=== PATIENT | female | born 1995 | race Caucasian/White ===

== ENCOUNTER → 2017-05-22 14:00 | Outpatient (CLI) | payer SELFPAY ==
[2017-05-23 12:49] LABS: Chlamydia Trachomatis by PCR Negative (Negative); Neisserai gonorrhoeae by PCR Negative (Negative); Probe Check PASS; Sample Adequacy Control PASS; Specimen Processing Control PASS
[2017-05-25 10:22] LABS: HPV Reflexed? NOT INDICATED
== END ==
PROVIDERS: Visit Provider Obstetrics & Gynecology
DX: Z12.4 Encounter for screening for malignant neoplasm of cervix (principal); Z11.3 Encounter for screening for infections with a predominantly sexual mode of transmission
CPT/HCPCS: 87491; 87591; 88175; G0145

== ENCOUNTER → 2017-05-23 13:49 | Outpatient (CLI) | payer SELFPAY ==
[2017-05-23 16:16] LABS: Color, Urine Yellow (Yellow); Glucose, Dipstick Normal (Normal); Ketone-Dipstick Negative (Negative); Leukocyte Esterase-Dipstick 25 /ul (Negative); Nitrite-Dipstick Negative (Negative); Occult Blood-Urine Negative /ul (Negative); Protein-Dipstick Negative (Negative); Specific Gravity, Urine 1.015 (1.002-1.030); Urine Bilirubin Dipstick Negative (Negative); Urine Clarity Sl. Cloudy (Clear); Urine Urobilinogen Normal (Normal)
[2017-05-23 16:24] LABS: Absolute Lymphocyte Count 1.78 X10^3/ul (0.83-4.51); Absolute Neutrophil Count 4.6 X10^3/uL (2.0-7.7); Basophil# 0.01 X10^3/uL; Basophil% 0.1 % (0-1); Eosinophil# 0.02 X10^3/uL; Eosinophils% 0.3 % (0-5); Hematocrit 37.7 % (37-47); Hemoglobin 12.7 g/dl (12.0-15.0); Lymphocyte # 1.78 X10^3/ul (4.0); Lymphocyte % 26.3 % (19-41); Mean Corp Hgb Conc 33.7 g/gl (32-36); Mean Corpuscular Hgb 29.2 pg (27.0-32.0); Mean Corpuscular Volume 86.7 fL (81-99); Mean Platelet Vol. 9.7 fl (6.2-12.0); Monocyte# 0.32 X10^3/uL; Monocyte% 4.7 % (0-10); Neutrophil # 4.62 X10^3/uL (2.7-7.7); Neutrophil % 68.5 % (47-70); POSITIVE COUNT NO; POSITIVE DIFFERENTIAL NO; POSITIVE MORPHOLOGY NO; Platelet Count 208 K/mm3 (150-450); RBC Distribution Width CV 13.2 % (11.6-14.6); RBC Distribution Width SD 42.1 fl (35.1-43.9); Red Blood Count 4.35 M/mm3 (4.2-5.4); White Blood Count 6.8 K/mm3 (4.4-11.0)
[2017-05-23 16:43] LABS: Thyroid Stim Hormone (TSH) 1.53 uIU/mL (0.358-3.74)
[2017-05-23 17:24] LABS: HIV - WCH Non-Reactive (Nonreactive)
[2017-05-25 10:21] LABS: HEPATITIS B SURFACE AG Negative (Negative); Hep C Antibodies <0.1 s/co ratio (0.0-0.9)
[2017-05-27 01:50] LABS: Prenatal RPR NONREACTIVE (NONREACTIVE)
== END ==
PROVIDERS: Visit Provider Obstetrics & Gynecology
DX: Z34.82 Encounter for supervision of other normal pregnancy, second trimester (principal)
CPT/HCPCS: 36415; 81002; 84443; 85025; 86703; 86762; 86803; 87340

== ENCOUNTER → 2017-09-04 11:00 | Outpatient (CLI) | payer SELFPAY ==
[2017-09-05 11:27] LABS: Group B Strep DNA By PCR Negative (Negative); Internal Control PASS; Probe Check PASS; Specimen Processing Control PASS
== END ==
PROVIDERS: Visit Provider Obstetrics & Gynecology
DX: Z36.85 Encounter for antenatal screening for Streptococcus B (principal)
CPT/HCPCS: 87081; 87653

== ENCOUNTER 2017-10-04 07:00 | Inpatient (IN) | payer SELFPAY ==
[2017-10-04 07:05] VITALS: BMI 27.7
[2017-10-04] MEDS: Lactated Ringers 1,000 ML 50 ML IV (07:40)
[2017-10-04] MEDS: Oxytocin 30 units/NS 500 ml 30 UNITS/500 ML IV.SOLN IV (07:54)
[2017-10-04 07:55] LABS: Hematocrit 34.9 % (37-47); Mean Corp Hgb Conc 34.4 g/gl (32-36); Mean Corpuscular Volume 87.3 fL (81-99); Platelet Count 144 K/mm3 (150-450); RBC Distribution Width CV 12.7 % (11.6-14.6); RBC Distribution Width SD 40.7 fl (35.1-43.9); White Blood Count 5.8 K/mm3 (4.4-11.0)
[2017-10-04 07:57] LABS: Scan Indicated on CBC? Y/N NO
[2017-10-04] MEDS: CLARIFY ORDER NOTE (08:13)
[2017-10-04] MEDS: Nalbuphine 10 MG/ML Ampul IV (11:11)
[2017-10-04] MEDS: Oxytocin 30 units/NS 500 ml 30 UNITS/500 ML IV.SOLN 334 UNITS IV (14:10)
--- NOTE | 2017-10-04 14:20 | PCM.OB.VAG ---
Vaginal Delivery Maternal Presentation: Elective Induction Method of Induction: Pitocin, Amniotomy Amniotic Membrane Rupture Type: Artificial Amniotic Fluid Description: Clear Final ANNETTE: 09/30/17 Final ANNTETE Source: US <20 weeks Gestational age: 40 Weeks and 4 Days Date of Procedure: 10/04/17 Pre-Operative Diagnosis: IUP Post-Operative Diagnosis: IUP Surgery/ Procedure Performed: Spontaneous Vaginal Delivery Type of Anesthesia: None Description of Procedure: Spontaneous vaginal delivery of a viable female with Apgars of 9/9 with a normal three-vessel placenta. Occiput anterior presentation. No episiotomy. First-degree midline laceration repaired with 3-0 Vicryl suture. Sponge counts okay. Delivery physician: Rudy Rodriguez MD. Presentation: Vertex Placental Delivery Description: Spontaneous Placenta Disposition: [facility] Cord Vessel Description: 3 Vessels Cord Entanglement: None Estimated Blood Loss: 250 cc Infant A gender: Female (1 minute): 9 (5 minute): 9 Episiotomy Description: None Laceration: Midline, Perineal Extension/lac, 1st degree Medications given after delivery: IV Pitocin Complications: None
--- NOTE | 2017-10-04 14:23 | OP.PCM_ITS ---
Vaginal Delivery Maternal Presentation: Elective Induction Method of Induction: Pitocin, Amniotomy Amniotic Membrane Rupture Type: Artificial Amniotic Fluid Description: Clear Final ANNETTE: 09/30/17 Final ANNETTE Source: US <20 weeks Gestational age: 40 Weeks and 4 Days Date of Procedure: 10/04/17 Pre-Operative Diagnosis: IUP Post-Operative Diagnosis: IUP Surgery/ Procedure Performed: Spontaneous Vaginal Delivery Type of Anesthesia: None Description of Procedure: Spontaneous vaginal delivery of a viable female with Apgars of 9/9 with a normal three-vessel placenta. Occiput anterior presentation. No episiotomy. First-degree midline laceration repaired with 3-0 Vicryl suture. Sponge counts okay. Delivery physician: Rudy Rodriguez MD. Presentation: Vertex Placental Delivery Description: Spontaneous Placenta Disposition: [facility] Cord Vessel Description: 3 Vessels Cord Entanglement: None Estimated Blood Loss: 250 cc Infant A gender: Female (1 minute): 9 (5 minute): 9 Episiotomy Description: None Laceration: Midline, Perineal Extension/lac, 1st degree Medications given after delivery: IV Pitocin Complications: None
--- NOTE | 2017-10-04 14:23 | PCM.DCVAG ---
Discharge Diet: No Restrictions Discharge Activity: May Shower, May Take a Tub Bath May resume sexual activity in: 4-6 weeks Additional Activity Instructions:: Nothing in the vagina for 4-6 weeks. You may return to work/school in 6 weeks. Call your doctor if you observe: Fever of 101 or Higher, Inability to urinate, Inability to have a bowel movement, Using more than one pad per hour Additional Instructions: If you experience any of the following, contact your healthcare provider. Bleeding that soaks a pad every hour for 2 hours Unrelieved incision or abdominal pain Swelling, redness, discharge or bleeding from your incision or episiotomy site Your incision begins to separate Problems urinating (including inability to urinate or burning while urinating). Visual changes Severe headache Flu-like symptoms Pain or redness in one of both of your breasts Pain, warmth, tenderness or swelling in your legs, especially the calf area Frequent nausea and vomiting Symptoms of depression or anxiety If you experience any of the following, call 911 or go to the nearest Emergency Room. Chest pain Problems breathing Seizure activity Partial or complete paralysis of a body part, slurred speech, weakness or drooping of the face, or a sudden inability to walk or hold your balance Allergies/Adverse Reactions: Allergies No Known Allergies Allergy (Unverified 10/04/17 08:11) Medications to take at Discharge Vits [Prenatabs FA] 1 tablet PO DAILY 10/04/17 Please Follow Up With: Rudy Rodriguez MD - [phone] When: Call to make an appointment with your doctor in 6 weeks. Primary Care Physician: Rudy Marquez [Primary Care Provider] -
--- NOTE | 2017-10-04 14:24 | DCINST_ITS ---
Discharge Diet: No Restrictions Discharge Activity: May Shower, May Take a Tub Bath May resume sexual activity in: 4-6 weeks Additional Activity Instructions:: Nothing in the vagina for 4-6 weeks. You may return to work/school in 6 weeks. Call your doctor if you observe: Fever of 101 or Higher, Inability to urinate, Inability to have a bowel movement, Using more than one pad per hour Additional Instructions: If you experience any of the following, contact your healthcare provider. * Bleeding that soaks a pad every hour for 2 hours * Unrelieved incision or abdominal pain * Swelling, redness, discharge or bleeding from your incision or episiotomy site * Your incision begins to separate * Problems urinating (including inability to urinate or burning while urinating) . * Visual changes * Severe headache * Flu-like symptoms * Pain or redness in one of both of your breasts * Pain, warmth, tenderness or swelling in your legs, especially the calf area * Frequent nausea and vomiting * Symptoms of depression or anxiety If you experience any of the following, call 911 or go to the nearest Emergency Room. * Chest pain * Problems breathing * Seizure activity * Partial or complete paralysis of a body part, slurred speech, weakness or drooping of the face, or a sudden inability to walk or hold your balance Allergies/Adverse Reactions: Allergies No Known Allergies Allergy (Unverified 10/04/17 08:11) Medications to take at Discharge Vits [Prenatabs FA] 1 tablet PO DAILY 10/04/17 Please Follow Up With: Rudy Rodriguez MD - [phone] When: Call to make an appointment with your doctor in 6 weeks. Primary Care Physician: Rudy Marquez [Primary Care Provider] -
[2017-10-04] MEDS: Oxytocin 30 units/NS 500 ml 30 UNITS/500 ML IV.SOLN 167 UNITS IV (14:40)
[2017-10-04] MEDS: Methylergonovine 0.2 MG/ML Ampul IM (15:01)
[2017-10-04] MEDS: 0.9% Saline Lock 10 ML Syringe IV (16:26)
[2017-10-04 21:00] VITALS: BP 134/75; PULSE 68; RESP 16; TEMP 36.6; O2SAT 97
[2017-10-04] MEDS: Ibuprofen 600 MG Tablet PO (21:19)
[2017-10-05 00:15] VITALS: BP 107/68; PULSE 62; RESP 16; TEMP 36.3
[2017-10-05 04:00] VITALS: BP 112/65; PULSE 75; RESP 16; TEMP 36.4
[2017-10-05 08:02] VITALS: BP 107/69; PULSE 60; RESP 16; TEMP 36.2; O2SAT 98
[2017-10-05] MEDS: Ibuprofen 600 MG Tablet PO (08:13)
--- NOTE | 2017-10-05 08:25 | PCM.PN.OB ---
Subjective: No complaints. Denies heavy lochia. Infant nurses well. Has minimal pain. Objective: avss - Physical Exam General: Alert, Oriented x3, Cooperative HEENT: Atraumatic, Normocephalic Lungs: Clear to auscultation, Normal air movement Cardiovascular: Regular rate, Regular Rhythm, Normal S1, Normal S2 Abdomen: Soft, Non Tender, Non-Distended, - - Fundus firm and nontender, lochia moderate Extremities: No edema, No Calf Tenderness Neurological: Neuro grossly intact Psych/Mental Status: Normal Affect, Appropriate, Alert and oriented to time, place, person, mood and affect Vital Signs Temp Pulse Resp BP Pulse Ox 97.6 F L 67 16 113/72 97 10/05/17 11:23 10/05/17 11:23 10/05/17 11:23 10/05/17 11:23 10/05/17 11:23 Oxygen Delivery Method Room Air Weight: 75.614 kg Body Mass Index (BMI) 27.7 Intake and Output for Last 24 Hours 10/03/17 10/04/17 10/05/17 23:59 23:59 23:59 Intake Total 1350 / 1350 Output Total 325 / 325 Balance 1025 / 1025 Medical Necessity - Tobacco Use Smoking Status: Former smoker Assessment/Plan 22yo P2002 PPD#1 s/p doing well. -Rh positive -Discussed LARC form - following review of various contraceptive options including LARCs. Patient declines. Form signed - -Will plan for d/c later today pending discharge
[2017-10-05 11:23] VITALS: BP 113/72; PULSE 67; RESP 16; TEMP 36.4; O2SAT 97
[2017-10-05 16:07] VITALS: BP 122/79; PULSE 77; RESP 16; TEMP 36.4; O2SAT 99
== END 2017-10-05 17:35 | disposition home or self-care (01) | DRG 775 ==
PROVIDERS: Admitting Provider Obstetrics & Gynecology; Family Provider Family Medicine; PCP Family Medicine; Visit Provider Obstetrics & Gynecology
DX: O70.0 First degree perineal laceration during delivery (principal); Z3A.39 39 weeks gestation of pregnancy; Z37.0 Single live birth; Z87.891 Personal history of nicotine dependence
CPT/HCPCS: 59025; 59050; 85027; 86850; 86900; 99218; J7120; A4216; G0378